=== PATIENT | male | born 1975 ===

== ENCOUNTER 2023-07-02 08:11 | Emergency (ER) | payer SELFPAY ==
[2023-07-02 09:06] LABS: CORONAVIRUS COVID-19 NAA NEGATIVE (NEGATIVE); INFLUENZA A NAA NEGATIVE (NEGATIVE); INFLUENZA B NAA POSITIVE (NEGATIVE)
[2023-07-02] MEDS ORDERED: Acetaminophen 325 MG Tab PO ONE (09:25)
[2023-07-02] MEDS ORDERED: Ibuprofen 400 MG Tab PO ONE (09:25)
== END 2023-07-02 10:04 | disposition home or self-care (01) ==
LOC: MW.ED 08:11
DX: J11.1 Influenza due to unidentified influenza virus with other respiratory manifestations (principal); Z20.822 Contact with and (suspected) exposure to COVID-19; F17.210 Nicotine dependence, cigarettes, uncomplicated
CPT/HCPCS: 0240U; 99283; A9270